=== PATIENT | female | born 1995 | race American Indian/Alaskan Native ===

== ENCOUNTER 2017-01-08 22:30 | Emergency (ER) | payer OTHER ==
[2017-01-09 00:15] LABS: Bilirubin,Urine NEG (Negative); Blood,Urine LG (Negative); Ketones,Urine NEG (Negative); Leukocyte Esterase,Urine NEG (Negative); Mucus,Urine FEW /HPF; Nitrite,Urine NEG (Negative); Protein,Urine <15 mg/dL mg/dL (Negative); Urobilinogen,Urine < 2.0 mg/dL (<2.0)
[2017-01-09 00:59] LABS: Basophils % (Auto) 0.3 % (0.0-1.8); Eosinophils % (Auto) 0.8 % (0.0-4.3); Hematocrit 37.5 % (30.3-42.9); Hemoglobin 12.5 gm/dl (10.1-14.3); Mean Corpuscular HGB Conc 33 % (30-34); Mean Corpuscular Volume 73 fl (79-97); Platelet Count 353 K/mm3 (140-440); Red Blood Count 5.16 M/mm3 (3.65-5.03); Red Cell Distribution Width 15.9 % (13.2-15.2); White Blood Count 13.9 K/mm3 (4.5-11.0)
[2017-01-09 01:00] LABS: Mean Corpuscular Hemoglobin 24 pg (28-32)
[2017-01-09 01:07] LABS: Alanine Aminotransferase 13 units/L (7-56); Albumin 4.4 g/dL (3.9-5); Albumin/Globulin Ratio 1.3 %; Alkaline Phosphatase 76 units/L (35-129); Anion Gap 17 mmol/L; BUN/Creatinine Ratio 22.85; Blood Urea Nitrogen 16 mg/dL (7-17); Calcium 9.3 mg/dL (8.4-10.2); Carbon Dioxide 29 mmol/L (22-30); Chloride 99.5 mmol/L (98-107); Glucose 71 mg/dL (65-100); Lipase 18 units/L (13-60); Potassium 3.8 mmol/L (3.6-5.0); Sodium 142 mmol/L (137-145); Total Protein 7.8 g/dL (6.3-8.2)
--- NOTE | 2017-01-09 06:34 | Emergency Department Report ---
ED Abdominal Pain HPI - General Chief Complaint: Abdominal Pain Stated Complaint: VOMITING Time Seen by Provider: 01/09/17 06:30 Source: patient Mode of arrival: Ambulatory Limitations: No Limitations - History of Present Illness Initial Comments: The patient complained of lower abdominal pain associated with some urgency but no vaginal discharge. She states that she is currently menstruating. She has had some nausea but no diarrhea. She had a normal bowel movement today. She's had no prior abdominal surgery or issues. MD Complaint: abdominal pain -: days(s) (since ) Location: LLQ, RLQ Radiation: none Migration to: no migration Severity: moderate Quality: aching Consistency: intermittent, now resolved (now essentially resolved) Improves With: nothing Worsens With: nothing Associated Symptoms: denies other symptoms, nausea - Related Data Previous Rx's Medication Instructions Recorded Last Taken Type Nitrofurantoin Kinney/M-Cryst 100 mg PO Q12HR #7 capsule 01/09/17 Unknown Rx [Macrobid CAP] Ondansetron [Zofran Odt] 4 mg PO Q6H PRN #7 tab.rapdis 01/09/17 Unknown Rx traMADol [Ultram] 50 mg PO Q6HR PRN #14 tablet 01/09/17 Unknown Rx Allergies Allergy/AdvReac Type Severity Reaction Status Date / Time No Known Allergies Allergy Verified 01/09/17 07:46 ED Review of Systems ROS: Stated complaint: VOMITING Other details as noted in HPI Constitutional: denies: chills, fever Eyes: denies: eye pain, eye discharge, vision change ENT: denies: ear pain, throat pain Respiratory: denies: cough, shortness of breath, wheezing Cardiovascular: denies: chest pain, palpitations Endocrine: no symptoms reported Gastrointestinal: as per HPI, abdominal pain, nausea. denies: diarrhea Genitourinary: as per HPI, other. denies: urgency, dysuria, discharge Musculoskeletal: denies: back pain, joint swelling, arthralgia Skin: denies: rash, lesions Neurological: denies: headache, weakness, paresthesias Psychiatric: denies: anxiety, depression Hematological/Lymphatic: denies: easy bleeding, easy bruising ED Past Medical Hx - Past Medical History Previous Medical History?: Yes Hx Psychiatric Treatment: Yes (ADHD) - Social History Smoking Status: Current Some Day Smoker - Medications Home Medications: Home Medications Medication Instructions Recorded Confirmed Last Taken Type Nitrofurantoin Kinney/M-Cryst 100 mg PO Q12HR #7 capsule 01/09/17 Unknown Rx [Macrobid CAP] Ondansetron [Zofran Odt] 4 mg PO Q6H PRN #7 tab.rapdis 01/09/17 Unknown Rx traMADol [Ultram] 50 mg PO Q6HR PRN #14 tablet 01/09/17 Unknown Rx ED Physical Exam - General Limitations: No Limitations General appearance: alert, in no apparent distress - Head Head exam: Present: atraumatic, normocephalic - Eye Eye exam: Present: normal appearance. Absent: scleral icterus - ENT ENT exam: Present: mucous membranes moist - Neck Neck exam: Present: normal inspection. Absent: tenderness, meningismus - Respiratory Respiratory exam: Present: normal lung sounds bilaterally. Absent: respiratory distress - Cardiovascular Cardiovascular Exam: Present: regular rate, normal rhythm. Absent: systolic murmur, diastolic murmur, rubs, gallop - GI/Abdominal GI/Abdominal exam: Present: soft, tenderness (mild lower abdominal discomfort to deep palpation only.No peritoneal Signs), normal bowel sounds. Absent: distended, guarding, rebound, rigid, organomegaly, mass, bruit, pulsatile mass, hernia - Extremities Exam Extremities exam: Present: normal inspection - Back Exam Back exam: Present: normal inspection - Neurological Exam Neurological exam: Present: alert, oriented X3, CN II-XII intact. Absent: motor sensory deficit - Psychiatric Psychiatric exam: Present: normal affect, normal mood - Skin Skin exam: Present: warm, dry, intact, normal color. Absent: rash ED Course Vital Signs 01/08/17 01/09/17 01/09/17 23:43 05:09 06:51 Temperature 98.4 F 97 F L Pulse Rate 74 80 86 Respiratory 20 19 18 Rate Blood Pressure 144/88 Blood Pressure 104/68 152/69 [Left] O2 Sat by Pulse 98 99 99 Oximetry 01/09/17 01/09/17 07:40 08:22 Temperature 98.4 F Pulse Rate 69 Respiratory 20 20 Rate Blood Pressure Blood Pressure 123/74 [Left] O2 Sat by Pulse 100 100 Oximetry - Reevaluation(s) Reevaluation #1: Patient stated that her abdominal pain had resolved. CT of her abdomen and pelvis showed a normal exam. 01/09/17 08:47 Reevaluation #2: I'm going to give the patient some analgesia and antiemetics and a few days of Macrobid. She should follow-up on her urine culture with a primary care physician and/or it network engineer 01/09/17 08:48 ED Medical Decision Making - Lab Data Result diagrams: 01/09/17 00:22 01/09/17 00:22 Laboratory Results - last 24 hr 01/08/17 01/09/17 01/09/17 23:46 00:22 00:22 WBC 13.9 H RBC 5.16 H Hgb 12.5 Hct 37.5 MCV 73 L MCH 24 L MCHC 33 RDW 15.9 H Plt Count 353 Lymph % (Auto) 31.3 Kinney % (Auto) 8.8 H Eos % (Auto) 0.8 Baso % (Auto) 0.3 Lymph # 4.4 Kinney # 1.2 H Eos # 0.1 Baso # 0.0 Seg Neutrophils % 58.8 Seg Neutrophils # 8.2 H Sodium 142 Potassium 3.8 Chloride 99.5 Carbon Dioxide 29 Anion Gap 17 BUN 16 Creatinine 0.7 Estimated GFR > 60 BUN/Creatinine Ratio 22.85 Glucose 71 Calcium 9.3 Total Bilirubin 0.30 AST 22 ALT 13 Alkaline Phosphatase 76 Total Protein 7.8 Albumin 4.4 Albumin/Globulin Ratio 1.3 Lipase 18 Urine Color Yellow Urine Turbidity Clear Urine pH 6.0 Ur Specific Atkins 1.024 Urine Protein <15 mg/dl Urine Glucose (UA) Neg Urine Ketones Neg Urine Blood Lg Urine Nitrite Neg Urine Bilirubin Neg Urine Urobilinogen < 2.0 Ur Leukocyte Esterase Neg Urine WBC (Auto) 4.0 Urine RBC (Auto) 34.0 U Epithel Cells (Auto) 1.0 Urine Mucus Few - Radiology Data Radiology results: report reviewed Critical care attestation.: If time is entered above; I have spent that time in minutes in the direct care of this critically ill patient, excluding procedure time. ED Disposition Clinical Impression: Abdominal pain Qualifiers: Abdominal location: lower abdomen, unspecified Qualified Code(s): R10.30 - Lower abdominal pain, unspecified Disposition: DC- TO HOME OR SELFCARE Is pt being admited?: No Does the pt Need Aspirin: No Condition: Stable Instructions: Abdominal Pain (ED) Additional Instructions: I'm going to give you a few days of antibiotics as he had some problems urinating. It is uncertain if you have any infection however. The urine culture will require 2 more days for results. They should be adequate treatment but check with your family doctor or it network engineer on this. Return any acute change or problem. If he do not have a it network engineer you may follow- up with Dr. Dexter. Prescriptions: Nitrofurantoin Kinney/M-Cryst [Macrobid CAP] 100 mg PO Q12HR #7 capsule Ondansetron [Zofran Odt] 4 mg PO Q6H PRN #7 tab.rapdis PRN Reason: Nausea traMADol [Ultram] 50 mg PO Q6HR PRN #14 tablet PRN Reason: Pain Referrals: PRIMARY CARE,MD [Primary Care Provider] - 3-5 Days Time of Disposition: 08:50
[2017-01-09] MEDS ORDERED: NACL 0.9% 1000 ML 1,000 ML IV ONE (07:08)
[2017-01-09] MEDS ORDERED: ROCEPHIN/NS 1 GM/50 ML 1 GM/50 ML BAG IV ONE (07:08)
[2017-01-09] MEDS ORDERED: NACL ONE (07:45)
[2017-01-09 08:22] VITALS: BP 123/74
--- NOTE | 2017-01-09 08:28 | Cat Scan Report ---
FINAL REPORT PROCEDURE: CT ABDOMEN PELVIS W CON TECHNIQUE: Computerized axial tomography of the abdomen and pelvis was performed after the IV injection of iodinated nonionic contrast. HISTORY: lower abd pain wbc up COMPARISON: None FINDINGS: Visualized lower thorax: No significant abnormality. Liver: Normal size and attenuation. Spleen: Normal size and attenuation. Gallbladder and biliary system: Normal. Pancreas: Normal. Adrenals: Normal. Kidneys: Normal. GI tract: Fine detail limited without oral contrast. No bowel obstruction or gross focal bowel lesion. Normal appendix. Lymph nodes and mesentery: Normal. Vasculature: Normal. Bladder: Normal. Reproductive organs: Normal. Peritoneum: No free fluid. Musculoskeletal structures: No significant abnormality. Other: None. IMPRESSION: Normal examination of the abdomen and pelvis
== END 2017-01-09 10:05 | disposition home or self-care (01) ==
LOC: ED 22:30
DX: R10.31 Right lower quadrant pain (principal); R10.32 Left lower quadrant pain; F90.9 Attention-deficit hyperactivity disorder, unspecified type; F17.200 Nicotine dependence, unspecified, uncomplicated
CPT/HCPCS: 36415; 74177; 80053; 81001; 81025; 83690; 85025; 87086; 96361; 96365; 99284; J0696; J7030; Q9967

== ENCOUNTER 2017-08-24 04:12 | Emergency (ER) | payer OTHER ==
[2017-08-24 08:36] LABS: Bacteria,Urine 1+ /HPF (Negative); Bilirubin,Urine NEG (Negative); Blood,Urine MOD (Negative); Color,Urine Yellow (Yellow); Mucus,Urine 3+ /HPF; Nitrite,Urine NEG (Negative); Protein,Urine <15 mg/dL mg/dL (Negative); Urobilinogen,Urine < 2.0 mg/dL (<2.0)
[2017-08-24 08:45] LABS: HCG Qualitative,Urine Negative (Negative)
[2017-08-24 11:35] VITALS: BP 114/64
--- NOTE | 2017-08-24 13:17 | Emergency Department Report ---
HPI - General Chief Complaint: Upper Respiratory Infection Time Seen by Provider: 08/24/17 12:04 - HPI HPI: Patient reports having flulike symptoms generalized fatigue, stuffy nose 2 days. She says she has some nausea and vomited at home but none at present. Body aches at 6 other tenderness a case that she took [id number] cough and cold medications not helping. Denies any chest pain or shortness of breath. Denies any abdominal pain. Denies any urinary burning frequency or urgency. Last menstrual cycle was 08/01/2017. Patient says she thinks that she got the flu when she accompanied her friend to the emergency room last week and she had to wait in the waiting room where there are many people that looks like they had the flu. ED Past Medical Hx - Past Medical History Previous Medical History?: No Hx Psychiatric Treatment: Yes (ADHD) - Surgical History Past Surgical History?: No - Family History Family history: no significant - Social History Smoking Status: Never Smoker Substance Use Type: None - Medications Home Medications: Home Medications Medication Instructions Recorded Confirmed Last Taken Type Nitrofurantoin Josephine/M-Cryst 100 mg PO Q12HR #7 capsule 01/09/17 Unknown Rx [Macrobid CAP] Ondansetron [Zofran Odt] 4 mg PO Q6H PRN #7 tab.rapdis 01/09/17 Unknown Rx traMADol [Ultram] 50 mg PO Q6HR PRN #14 tablet 01/09/17 Unknown Rx Cetirizine HCl [ZyrTEC] 10 mg PO QAM 10 Days #10 capsule 08/24/17 Unknown Rx Ibuprofen [Motrin] 600 mg PO Q6H PRN #20 tablet 08/24/17 Unknown Rx Oseltamivir [Tamiflu] 75 mg PO BID 5 Days #10 cap 08/24/17 Unknown Rx Promethazine /Codeine 5 ml PO Q6H PRN #100 ml 08/24/17 Unknown Rx [Phenergan/Codeine 6.25-10 mg/5Ml] ED Review of Systems ROS: Stated complaint: FLU-LIKE SX Other details as noted in HPI Comment: All other systems reviewed and negative Constitutional: chills, fever Eyes: denies: eye pain, eye discharge ENT: denies: ear pain, throat pain, congestion Respiratory: cough. denies: orthopnea, shortness of breath, SOB with exertion, SOB at rest, stridor, wheezing Cardiovascular: denies: chest pain, palpitations, dyspnea on exertion, orthopnea , edema, syncope, paroxysmal nocturnal dyspnea Gastrointestinal: denies: abdominal pain, nausea, vomiting, diarrhea, constipation, hematemesis, melena, hematochezia Genitourinary: denies: dysuria, frequency, hematuria, discharge Musculoskeletal: myalgia. denies: back pain, joint swelling, arthralgia Skin: denies: rash Neurological: weakness. denies: headache Physical Exam - Physical Exam Vital Signs: Vital Signs 08/24/17 08/24/17 06:19 11:34 Temperature 99.1 F 98.4 F Pulse Rate 77 70 Respiratory 16 14 Rate Blood Pressure 118/81 Blood Pressure 114/64 [Left] O2 Sat by Pulse 96 98 Oximetry General: This is a 22-year-old female well-nourished well-developed in no acute distress Physical Exam: Head: Normocephalic atraumatic Ears:BIateral TM congested without erythema and loss of bony landmarks. Ambrocio EAC with normal exam. No mastoid bone tenderness. Mouth: Moist, no pharyngeal erythema or exudate . No tonsillar erythema or exudate. UVULA midline and oral airways patent. No peritonsillar abscess Abdomen:, Nontender the palpation in all quadrants, no guarding or rebound tenderness. No CVA tenderness Neck: Nontender to palpate, supple, normal range of motion. No adenopathy. No c- spine tenderness. Nose: Bilateral nasal mucosa congested with clear drainage. Maxillary and frontal sinuses non-tender to palpate. Eyes: Sclerae and conjunctiva without injection. Bilateral pupils equal and reactive to light. Bilateral lids are normal. Normal accommodation. BEOMI Lungs: Clear to auscultate bilaterally, no rhonchi wheezes or rales. Normal work of breathing and no chest wall tenderness. Dry cough CV: S1, S2. Regular rate and rhythm negative murmur. Capillary refill is less than 3 seconds Skin: Clean dry and intact, no rashes or lesions Psych: Normal mood and behavior ED Course Vital Signs 08/24/17 08/24/17 06:19 11:34 Temperature 99.1 F 98.4 F Pulse Rate 77 70 Respiratory 16 14 Rate Blood Pressure 118/81 Blood Pressure 114/64 [Left] O2 Sat by Pulse 96 98 Oximetry - Reevaluation(s) Reevaluation #1: 08/24/17 14:13 Patient receive Tylenol codeine 10 mL and Zofran 8 mg ODT in emergency room. She says she is feeling better. I discussed the patient that her urinalysis was normal and test is negative. Patient able to tolerate oral fluids in emergency room without any difficulties. I discussed patient that based on her symptoms and my physical findings she has a viral syndrome which is a flu virus. ED Medical Decision Making - Lab Data Lab Results 08/24/17 Range/Units 07:11 Urine Color Yellow (Yellow) Urine Turbidity Clear (Clear) Urine pH 6.0 (5.0-7.0) Ur Specific Curran 1.024 (1.003-1.030) Urine Protein <15 mg/dl (Negative) mg/dL Urine Glucose (UA) Neg (Negative) mg/dL Urine Ketones 20 (Negative) mg/dL Urine Blood Mod (Negative) Urine Nitrite Neg (Negative) Urine Bilirubin Neg (Negative) Urine Urobilinogen < 2.0 (<2.0) mg/dL Ur Leukocyte Esterase Neg (Negative) Urine WBC (Auto) 1.0 (0.0-6.0) /HPF Urine RBC (Auto) 27.0 (0.0-6.0) /HPF U Epithel Cells (Auto) 8.0 (0-13.0) /HPF Urine Bacteria (Auto) 1+ (Negative) /HPF Urine Mucus 3+ /HPF Urine HCG, Qual Negative (Negative) - Medical Decision Making ED course: Patient here complaining of flulike symptoms that started 2 days ago and thinks she got the flu from coming to the emergency room with her friend where she was exposed to several people coughing on her in the waiting room. Patient with cough cold, fever and body aches. I discussed the patient that based on her presentation and clinical findings she has acute viral syndrome and will be treated as she have the flu. She was orally hydrated in emergency room and given Tylenol with codeine 10 mL by mouth and Zofran 8 mg ODT. I discuss her urinalysis and test results with her. I also discussed with her that she needs to go home and rest for 72 hours and increase her fluid intake. She voiced understanding of discharge instructions treatment plan and discharged from ED and stable condition with family and prescription for Tamiflu , Zyrtec, codeine with Phenergan and Motrin. Critical care attestation.: If time is entered above; I have spent that time in minutes in the direct care of this critically ill patient, excluding procedure time. ED Disposition Clinical Impression: Acute viral syndrome, URI with cough and congestion, Fever chills, Body aches, Nausea and vomiting in adult Disposition: DC-01 TO HOME OR SELFCARE Is pt being admited?: No Does the pt Need Aspirin: No Condition: Stable Instructions: Viral Syndrome (ED), Acute Nausea and Vomiting (ED), Musculoskeletal Pain (ED), Acute Cough (ED) Additional Instructions: Please increase her fluid intake to 2-3 L of fluid includes water, oranges and/ or Gatorade daily. Rest your body for 72 hours to allow your immune system to recover. Take medication as prescribed. Please do not drive or operate heavy machinery while taking this medication for cough and nausea as this medication causes drowsiness Follow-up with her primary care physician in 2 days and if you do not have a primary care physician follow-up at [facility] If his symptoms worsen, please return to the emergency room Prescriptions: Cetirizine HCl [ZyrTEC] 10 mg PO QAM 10 Days #10 capsule Ibuprofen [Motrin] 600 mg PO Q6H PRN #20 tablet PRN Reason: Fever and pain Oseltamivir [Tamiflu] 75 mg PO BID 5 Days #10 cap Promethazine /Codeine [Phenergan/Codeine 6.25-10 mg/5Ml] 5 ml PO Q6H PRN #100 ml PRN Reason: cough Referrals: [facility] [Outside] - 08/26/17 Forms: Work/School Release Form(ED)
[2017-08-24] MEDS ORDERED: TYLENOL/CODEINE PO ONE (13:19)
[2017-08-24] MEDS ORDERED: ZOFRAN ODT PO ONE (13:19)
== END 2017-08-24 14:34 | disposition home or self-care (01) ==
LOC: ED 04:12
DX: J06.9 Acute upper respiratory infection, unspecified (principal); B34.9 Viral infection, unspecified; F90.9 Attention-deficit hyperactivity disorder, unspecified type
CPT/HCPCS: 81001; 81025; 99283; Q0162